=== PATIENT | female | born 2000 | race Caucasian/White ===

== ENCOUNTER → 2024-10-28 | Outpatient (CLI) | payer OTHER ==
[2024-10-28 15:57] LABS: BASO % 0.4 % (0.0-1.0); EOS # 0.1 10^3/uL (0.0-0.5); EOS % 0.8 % (0.0-3.0); HEMATOCRIT 39.9 % (36.0-47.0); HEMOGLOBIN 12.6 g/dl (12.0-15.5); LYMPH # 2.8 10^3/uL (1.5-5.0); LYMPH % 27.7 % (24.0-44.0); MEAN CORPUSCULAR HEMOGLOBIN 27.7 pg (27.0-33.0); MEAN CORPUSCULAR HGB CONC 31.6 g/dl (32.0-36.5); MEAN CORPUSCULAR VOLUME 87.7 fl (80.0-96.0); MONO # 0.9 10^3/uL (0.0-0.8); NEUTROPHILS # 6.4 10^3/uL (1.5-8.5); NEUTROPHILS % 61.8 % (36.0-66.0); PLATELET COUNT, AUTOMATED 425 10^3/uL (150-450); RED BLOOD COUNT 4.55 10^6/uL (4.00-5.40); WHITE BLOOD COUNT 10.3 10^3/uL (4.0-10.0)
[2024-10-28 16:08] LABS: HEMOGLOBIN A1c 5.2 % (4.0-6.0)
[2024-10-28 16:25] LABS: ALBUMIN 3.5 G/DL (3.2-5.2); ALKALINE PHOSPHATASE 91 U/L (35-104); ALT/SGPT 20 U/L (7.0-40); AST/SGOT < 8 U/L (<34); BILIRUBIN,TOTAL 0.2 MG/DL (0.3-1.2); BLOOD UREA NITROGEN 17 MG/DL (9-23); CALCIUM LEVEL 9.5 MG/DL (8.5-10.1); CARBON DIOXIDE LEVEL 29 MMOL/L (20-31); CHLORIDE LEVEL 106 MMOL/L (98-107); CREATININE FOR GFR 0.87 MG/DL (0.55-1.30); GLOMERULAR FILTRATION RATE > 60.0 (>60); GLUCOSE, FASTING 91 MG/DL (60-100); POTASSIUM SERUM 4.4 MMOL/L (3.5-5.1); SODIUM LEVEL 142 MMOL/L (136-145); TOTAL PROTEIN 7.4 G/DL (5.7-8.2)
[2024-10-28 16:29] LABS: PROLACTIN 8.45 NG/ML; THYROID STIMULATING HORMONE 0.455 uIU/ML (0.55-4.78)
[2024-10-28 16:30] LABS: FREE T4 1.23 NG/DL (0.89-1.76)
== END ==
LOC: M PLALAB 14:07
PROVIDERS: ATTEND Nurse Practitioner Family
DX: E28.2 Polycystic ovarian syndrome (principal); E66.9 Obesity, unspecified; L68.0 Hirsutism

== ENCOUNTER → 2025-06-07 | Outpatient (REF) | payer OTHER ==
[2025-06-09 15:47] LABS: HPV APTIMA Not Detected (Not Detected)
== END ==
LOC: M SFHCWAGY 15:09
PROVIDERS: ATTEND Nurse Practitioner Family
DX: Z12.4 Encounter for screening for malignant neoplasm of cervix (principal)
CPT/HCPCS: 87624; G0123

== ENCOUNTER 2025-06-30 01:43 | Emergency (ER) | payer OTHER ==
[~2025-06-30] VITALS: Ht 167.6 cm; Wt 111.6 kg
[2025-06-30 01:56] VITALS: TEMP 96.4
[2025-06-30 03:30] VITALS: BP 146/75; O2SAT 97
== END 2025-06-30 04:02 | disposition left against medical advice (07) ==
LOC: M ED 01:43
DX: Z53.21 Procedure and treatment not carried out due to patient leaving prior to being seen by health care provider (principal)